=== PATIENT | male | born 1970 | race Caucasian/White ===

== ENCOUNTER 2023-12-08 14:04 | Emergency (ER) | payer BC ==
[~2023-12-08] VITALS: Ht 180.3 cm; Wt 108.0 kg
[2023-12-08 14:24] VITALS: BP 155/105; PULSE 74; RESP 16; TEMP 97.7; O2SAT 98
[2023-12-08] MEDS ORDERED: CYCL-711 PO (14:57)
[2023-12-08] MEDS ORDERED: NAPR-54 PO (14:57)
== END 2023-12-08 15:03 | disposition home or self-care (01) ==
LOC: MED 14:04
DX: M79.2 Neuralgia and neuritis, unspecified (principal); I10 Essential (primary) hypertension; Z79.899 Other long term (current) drug therapy; Z79.1 Long term (current) use of non-steroidal anti-inflammatories (NSAID)
CPT/HCPCS: 99283